=== PATIENT | male | born 2000 ===

== ENCOUNTER 2022-04-07 11:30 | Outpatient (RCR) | payer OTHER, SELFPAY ==
[2022-03-17 13:26] VITALS: BMI 44.1
--- NOTE | 2022-03-17 16:58 | PC.ADMIT ---
Admission Note. 21 year old male admit to [facility] today 03/17/2022 with dx: Major depression, recurrent, moderate, generalized anxiety, marijuana (edibiles) use, mild. Referral from N. Patient reports increased depression and worsening anxiety x 4 weeks and passive SI with no plan or intent x 1 week. Patient denies SI/HI today. Patient denies VH/AH. Patient is cooperative and calm with good eye contact. Patient reports decreased anxiety and little change in depression. Continues to deny SI. Medications reconcilled with patient and pharmacy. Patient is currently on only Prozac 10mg and will increase to 20mg tomorrow per instruction of CLARI Orellana. Out patient providers include his PCP and Therapist. Patient is in agreement to complete nursing assessment on telehealth platform. All patient consents to release information reviewed. Per patient no changes. Medical issues: none per patient report. Legal issues: none per patient report.
--- NOTE | 2022-03-17 18:03 | HO.PS.ADMBH ---
HPI Date of Service: 03/17/22 Chief Complaint: anxiety,ADHD,depression Sources of Information: patient interviewed and chart reviewed HPI Narrative: Patient is a 21 year old male presenting to [facility] reporting worsening depressive and anxiety symptoms. He reports that since he was a young child he has dealt with anxiety symptoms, however over the last several months derpessive symptoms such as decreased motivation, anhedonia, tearfulness, constant worry and rumination, and thoughts of not being here anymore . Sleep and appetite not changed. He denies any plan to harm himself or desire to harm himself, and was frightened when thoughts presented as he never had these thoughts before.Symptoms have directly impacted his ability to work and he is now out on medical leave until at least April 04. He was (re)started on Fluoxetine 10mg QD by his PCP on Sunday. He reports that he has been on this medication several times on and off since [facility] for anxiety and found effective. He identifies improvement in symptoms as rationale for discontinuing medication over the years. 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) Family history: Father with hx of MDD Mother with hx of KEVIN Medical Evaluation Reviewed: No Diagnostics Vital Signs (24Hr): BMI result Body Mass Index 44.1 Meds/Allergies Meds Home Medications Medication Instructions Recorded Confirmed Type fluoxetine 10 mg capsule 10 mg PO DAILY 03/17/22 03/17/22 History fluoxetine 10 mg capsule 20 mg PO DAILY 03/17/22 03/17/22 History Allergies Allergies Allergy/AdvReac Type Severity Reaction Status Date / Time clarithromycin [From Biaxin] Allergy Unknown Verified 03/17/22 16:38 sertraline [From Zoloft] AdvReac Agitated Verified 03/17/22 16:40 Mental Status Exam Mental Status Exam Patient Appearance: Well Grooomed and Appropriate Patient Orientation: Person, Place, Time and Situation Level of Consciousness: Awake and Appropriate Patient Behavior: Appropriate Mood Description: Depressed and Anxious Affect Description: Appropriate Judgement: Good Telehealth Telehealth Location of provider rendering services: practice address Location of patient: address on file Patient Identification confirmed using: Name, : Yes Telehealth method: video Patient verbally consented to treatment: Yes Assessment & Plan Assessment & Plan (1) MDD (major depressive disorder), single episode, severe: Status: Acute Code(s): F32.2 - Major depressive disorder, single episode, severe without psychotic features Assessment and Plan: Increase Fluoxetine to 20mg daily follow up PRN Certification I certify that partial hospital treatment is medically necessary due to the symptoms and problems resulting from the patient's mental illness and the failure to treat the patient at the partial hospital level of care would likely result in the patient requiring inpatient psychiatric care which could not be prevented at a less intensive level of care.
--- NOTE | 2022-03-21 15:14 | PC.NURSE ---
Case opened in treatment team.
--- NOTE | 2022-03-22 19:31 | P.PNPSP_ITS ---
Subjective Subjective Date of Service: 03/22/22 Reason For Visit: anxiety,ADHD,depression Interim History: Patient presents for follow up Acclimating to PHP Increased Prozac dose to 20mg with no issues Uneventful weekend. No issues or concerns to report Review of Systems Medical Review of Systems: unchanged Mental Status Exam Mental Status Exam Patient Appearance: Well Grooomed and Appropriate Patient Orientation: Person, Place, Time and Situation Level of Consciousness: Awake and Appropriate Patient Behavior: Appropriate Mood Description: Depressed and Anxious Affect Description: Appropriate Judgement: Good Diagnostics Vital Signs (24Hr): BMI result Body Mass Index 44.1 Assessment & Plan Assessment & Plan (1) MDD (major depressive disorder), single episode, severe: Status: Acute Code(s): F32.2 - Major depressive disorder, single episode, severe without psychotic features Assessment and Plan: * follow up as needed * no medication changes indicated at this time. Certification I certify that partial hospital treatment is medically necessary due to the symptoms and problems resulting from the patient's mental illness and the f ailure to treat the patient at the partial hospital level of care would likely result in the patient requiring inpatient psychiatric care which could not be prevented at a less intensive level of care. I spent __15____ minutes with the patient and/or on the patient floor today, greater than?50% of which was spent counseling/coordinating care. Discharge Plan Discharge Attending provider: Kiko Modi Medications: No Action fluoxetine 10 mg Capsule 10 mg PO DAILY Rx Instructions: Fluoxetine 10mg cap take one cap daily for 7 days. Start 03/14/22 to 03/20/22 fluoxetine 10 mg Capsule 20 mg PO DAILY Rx Instructions: take two 10 mg capsules daily starting 03/21/2022 Telehealth Telehealth Location of provider rendering services: practice address Location of patient: address on file Patient Identification confirmed using: Name, : Yes Telehealth method: video Patient verbally consented to treatment: Yes
--- NOTE | 2022-03-29 10:52 | P.PNPSP_ITS ---
Subjective Subjective Date of Service: 03/29/22 Reason For Visit: anxiety,ADHD,depression Medical Problems Affecting Mental Status: No Interim History: Describes mood as I'm feeling okay today . Reports had a meltdown earlier in week, was ruminating. Continues with dysphoric mood, but states tolerable. No SI/HI reported, no safety concerns Tolerating fluoxetine 20mg well, no side effects. Appetite good, sleeping approximately 6 hours per night, states this is normal. Medication Compliance: Yes Side effects from medications: No Attending Groups: Yes Review of Systems Acute medical concerns: No Medical Review of Systems: unchanged Review of Systems Review of Systems Yes all other systems are reviewed and are negative Constitutional: Reports no additional constitutional complaints Reports Normal hearing present Gastrointestinal: Reports nausea (briefly this am, has since resolved.) Reports Normal hearing present Mental Status Exam Mental Status Exam Narrative: NAD. Fully attentive during encounter. No tics/tremors, no abnormal movements. Ambulation not observed. Patient Appearance: Appropriate Patient Orientation: Person, Place, Time and Situation Level of Consciousness: Appropriate Patient Behavior: Appropriate and Cooperative Mood Description: Depressed Affect Description: Depressed Patient Cognition Impaired: No Ability to Follow Directions: Good Speech Pattern: Clear and Appropriate Memory Description: Intact Hallucinations: None Delusions: Not Present Thought Process: Intact Thought Content: positive for Intact Depressive Symptoms: Loss of Int. in Activity, Feelings of Guilt, Unhappiness, Increased Fatigue, Loss of Energy and Difficulty Concentrating Judgement: Fair Diagnostics Vital Signs (24Hr): BMI result Body Mass Index 44.1 Assessment & Plan Assessment & Plan (1) MDD (major depressive disorder), single episode, severe: Status: Acute Code(s): F32.2 - Major depressive disorder, single episode, severe without psychotic features Assessment and Plan: Describes mood as I'm feeling okay today . Reports had a meltdown earlier in week, ruminating. Continues with dysphoric mood, but states tolerable. No SI/HI reported, no safety concerns Tolerating fluoxetine 20mg well, no side effects. He reports that he has taken fluoxetine in the past, with positive results. Not yet noticing relief from symptoms of depression, but is utilizing tools learned in groups. Discussed anxiety, he reports that he does feel anxious at times, but that his issue is more of depression rather than any anxiety symptoms. He has taken hydroxyzine in the past, but it made him feel dizzy. Appetite good, sleeping approximately 6 hours per night, states this is normal. Plan 1. Continue with current [facility] plan of care. 2. Continue with current medications as prescribed. 3. Follow-up as per protocol. Patient educated on: diagnosis, medication risk/benefits and therapeutic strategies Informed Consent: understands Reason for contiued partial hosp. stay Substantial Risk for: inability to function and med/psych decompensation Certification I certify that partial hospital treatment is medically necessary due to the symptoms and problems resulting from the patient's mental illness and the failure to treat the patient at the partial hospital level of care would likely result in the patient requiring inpatient psychiatric care which could not be prevented at a less intensive level of care. I spent minutes with the patient and/or on the patient floor today, greater than?50% of which was spent counseling/coordinating care. Discharge Plan Discharge Attending provider: Kiko Modi Medications: No Action fluoxetine 10 mg Capsule 10 mg PO DAILY Rx Instructions: Fluoxetine 10mg cap take one cap daily for 7 days. Start 03/14/22 to 03/20/22 fluoxetine 10 mg Capsule 20 mg PO DAILY Rx Instructions: take two 10 mg capsules daily starting 03/21/2022 Telehealth Telehealth Location of provider rendering services: practice address Location of patient: address on file Patient Identification confirmed using: Name, : Yes Telehealth method: video Patient verbally consented to treatment: Yes Patient verbally consented to billing insurance company: Yes Patient informed of any privacy concerns related to visit: Yes Minutes spent on Phone/Video with Pt.: 15
--- NOTE | 2022-04-03 14:15 | PC.NURSE ---
I spoke with the client about extending his time until Sunday and his appointment time for therapy at [facility]
--- NOTE | 2022-04-04 12:19 | HO.PHPPROGNO ---
Subjective Subjective Date of Service: 04/04/22 Reason For Visit: anxiety,ADHD,depression Medical Problems Affecting Mental Status: No Interim History: Describes mood as doing good, still a roller-coaster at times with the depression and anxiety, but improving . No concerns with fluoxetine, feels it is helping. No SI/HI, no safety concerns. Has FMLA paperwork to be completed. Medication Compliance: Yes Side effects from medications: No Attending Groups: Yes Review of Systems Acute medical concerns: No Medical Review of Systems: unchanged Review of Systems Review of Systems Yes all other systems are reviewed and are negative Constitutional: Reports no additional constitutional complaints Mental Status Exam Mental Status Exam Narrative: NAD. Fully attentive during encounter. No tics/tremors, no abnormal movements. Patient Appearance: Appropriate Patient Orientation: Person, Place, Time and Situation Level of Consciousness: Appropriate Patient Behavior: Appropriate, Cooperative and Good Eye Contact Mood Description: Depressed (improving) and Anxious Affect Description: Depressed (sx have lessened. ) Patient Cognition Impaired: No Ability to Follow Directions: Excellent Speech Pattern: Clear, Appropriate and Coherent Memory Description: Intact Hallucinations: None Delusions: Not Present Thought Process: Intact Thought Content: positive for Intact Depressive Symptoms: Loss of Int. in Activity, Increased Fatigue, Loss of Energy and Difficulty Concentrating Judgement: Fair Diagnostics Vital Signs (24Hr): BMI result Body Mass Index 44.1 Assessment & Plan Assessment & Plan (1) MDD (major depressive disorder), single episode, severe: Status: Acute Code(s): F32.2 - Major depressive disorder, single episode, severe without psychotic features Assessment and Plan: Patient reports continues with symptoms of depression and anxiety, but states they are much improved since prior to starting PHP. No SI/HI, no safety concerns. Tolerating fluoxetine 20mg daily with no reported side effects. Receiving fluoxetine from primary care, does not need script at this time. Is working with clinician regarding referrals for therapy and psychiatric provider going forward. Feels PHP program is helpful, learning and practicing healthy coping skills. Plan 1. Continue with current PHP plan of care. 2. Continue with current medications as prescribed by primary care provider. 3. Follow-up as per protocol. 4. FMLA paperwork completed and return to patient. Patient educated on: diagnosis, medication risk/benefits and therapeutic strategies Reason for contiued partial hosp. stay Substantial Risk for: inability to function Certification I certify that partial hospital treatment is medically necessary due to the symptoms and problems resulting from the patient's mental illness and the failure to treat the patient at the partial hospital level of care would likely result in the patient requiring inpatient psychiatric care which could not be prevented at a less intensive level of care. I spent minutes with the patient and/or on the patient floor today, greater than?50% of which was spent counseling/coordinating care. Discharge Plan Discharge Attending provider: Kiko Modi Additional Instructions: [facility] 04/13/22 @ 10 am Medications: No Action fluoxetine 10 mg Capsule 10 mg PO DAILY Rx Instructions: Fluoxetine 10mg cap take one cap daily for 7 days. Start 03/14/22 to 03/20/22 fluoxetine 10 mg Capsule 20 mg PO DAILY Rx Instructions: take two 10 mg capsules daily starting 03/21/2022 Stand Alone Forms: Patient Portal Discharge page Telehealth Telehealth Location of provider rendering services: practice address Location of patient: address on file Patient Identification confirmed using: Name, : Yes Telehealth method: video Patient verbally consented to treatment: Yes Patient informed of any privacy concerns related to visit: Yes Minutes spent on Phone/Video with Pt.: 15
--- NOTE | 2022-04-05 10:14 | PC.NURSE ---
Patient asked for staff help finding a new PCP as he will no longer be able to see his pediatric PCP as of October 2021. See discharge paperwork for new PCP information.
--- NOTE | 2022-04-07 10:53 | HO.PHPPROGNO ---
Subjective Subjective Date of Service: 04/07/22 Reason For Visit: anxiety,ADHD,depression Medical Problems Affecting Mental Status: No Interim History: Describes mood as ?I feel good today ?. Patient reports ?I am ready to go out to the real world again ?. States symptoms of depression have substantially decreased. No SI/HI, no safety concerns. Tolerating fluoxetine 20 mg well. Medication Compliance: Yes Side effects from medications: No Attending Groups: Yes Review of Systems Acute medical concerns: No Medical Review of Systems: unchanged Review of Systems Review of Systems Yes all other systems are reviewed and are negative Constitutional: Reports no additional constitutional complaints Mental Status Exam Mental Status Exam Narrative: NAD. Fully attentive during encounter. No tics/tremors, no abnormal movements. Patient Appearance: Well Grooomed and Appropriate Patient Orientation: Person, Place, Time and Situation Level of Consciousness: Appropriate Patient Behavior: Appropriate, Cooperative and Good Eye Contact Mood Description: Appropriate Affect Description: Appropriate Patient Cognition Impaired: No Ability to Follow Directions: Excellent Speech Pattern: Clear, Appropriate and Coherent Memory Description: Intact Hallucinations: None Delusions: Not Present Thought Process: Intact Thought Content: positive for Intact Depressive Symptoms: Difficulty Concentrating (Relates this to dx of ADD.) Judgement: Good Diagnostics Vital Signs (24Hr): BMI result Body Mass Index 44.1 Assessment & Plan Assessment & Plan (1) MDD (major depressive disorder), single episode, severe: Status: Acute Code(s): F32.2 - Major depressive disorder, single episode, severe without psychotic features Assessment and Plan: Patient describes mood as improved. Feels he is ready to be discharged from [facility], feels ready to resume work duties. PHQ-9 administered, patient scored 2. Patient's score at intake was 11. We reviewed results together. Patient denies SI/HI, no safety concerns. He feels the medication fluoxetine is working well. He has an appointment with his primary care physician next week. He also has been referred to therapist and psychiatric provider, has appointments in place. The patient reports he has learned healthy coping skills while here, and feels hopeful for the future. Plan 1. Patient appears stable for discharge from [facility] at this time. 2. Patient to follow-up with outpatient providers going forward. Patient educated on: diagnosis, medication risk/benefits and therapeutic strategies Informed Consent: understands Reason for contiued partial hosp. stay Substantial Risk for: stable for discharge Certification I certify that partial hospital treatment is medically necessary due to the symptoms and problems resulting from the patient's mental illness and the failure to treat the patient at the partial hospital level of care would likely result in the patient requiring inpatient psychiatric care which could not be prevented at a less intensive level of care. I spent minutes with the patient and/or on the patient floor today, greater than?50% of which was spent counseling/coordinating care. Discharge Plan Discharge Attending provider: Kiko Modi Additional Instructions: [facility] New PCP appointment at [facility] [address] [place] [address]. Office # [phone]. With Dr Caroline Shen on August 31, 2022 at 9:00 am. Medications: No Action fluoxetine 10 mg Capsule 10 mg PO DAILY Rx Instructions: Fluoxetine 10mg cap take one cap daily for 7 days. Start 03/14/22 to 03/20/22 fluoxetine 10 mg Capsule 20 mg PO DAILY Rx Instructions: take two 10 mg capsules daily starting 03/21/2022 Stand Alone Forms: Patient Portal Discharge page Telehealth Telehealth Location of provider rendering services: practice address Location of patient: address on file Patient Identification confirmed using: Name, : Yes Telehealth method: video Patient verbally consented to treatment: Yes Patient verbally consented to billing insurance company: Yes Patient informed of any privacy concerns related to visit: Yes Minutes spent on Phone/Video with Pt.: 15
--- NOTE | 2022-04-07 12:52 | PC.NURSE ---
Discharge Note: Patient discharged today, 04/07/22 from [facility]. Discharge routine, patient states he is ready for discharge. Patient met with [employer] today re: discharge medication review. Patient denies SI. Patient denies HI. Patient has completed 14 days at [facility] and is discharged to out-patient providers. Discharge medication list faxed to PCP. Patient is in agreement with discharge plan and states understanding of discharge medications.
== END 2022-04-07 23:59 | disposition home or self-care (01) ==
LOC: HO.PHPA 11:30
PROVIDERS: Visit Provider Psychiatry & Neurology Psychiatry
DX: F33.1 Major depressive disorder, recurrent, moderate (principal); F41.1 Generalized anxiety disorder; Z79.899 Other long term (current) drug therapy
CPT/HCPCS: 90791; 90853